=== PATIENT | female | born 1980 ===

== ENCOUNTER 2019-04-07 12:11 | Outpatient (CLI) | payer OTHER ==
[~2019-04-07] VITALS: Ht 172.7 cm; Wt 72.6 kg
== END 2019-04-07 12:25 | disposition home or self-care (01) ==
LOC: OFIC 805 12:11
DX: H61.22 Impacted cerumen, left ear (principal); H60.8X2 Other otitis externa, left ear; H92.02 Otalgia, left ear

== ENCOUNTER 2019-04-11 12:20 | Outpatient (CLI) | payer OTHER ==
[~2019-04-11] VITALS: Ht 152.4 cm; Wt 72.6 kg
== END 2019-04-11 12:40 | disposition home or self-care (01) ==
LOC: OFIC 805 12:20
DX: H60.8X2 Other otitis externa, left ear (principal); H92.02 Otalgia, left ear; H61.22 Impacted cerumen, left ear